=== PATIENT | female | born 1960 | race Caucasian/White ===

== ENCOUNTER 2024-10-05 06:36 | Day surgery (SDC) | payer OTHER ==
[~2024-10-05] VITALS: Ht 167.6 cm; Wt 79.1 kg
[~2024-10-05 06:36] MED LIST: SODIUM CHLORIDE 0.9% 1,000 ML ONE
[2024-10-05] MEDS ORDERED: CHOL10002 PO (07:32)
[2024-10-05] MEDS ORDERED: VALS1TAB81 PO (07:32)
[2024-10-05] MEDS ORDERED: FAMO20 PO (07:32)
[2024-10-05] MEDS ORDERED: METF-1211 PO (07:32)
[2024-10-05] MEDS ORDERED: MONT-40 PO (07:32)
[2024-10-05] MEDS ORDERED: CARV25TA32 PO (07:32)
[2024-10-05] MEDS ORDERED: ATOR40TA71 PO (07:32)
[2024-10-05] MEDS ORDERED: MIDAZOLAM HCL 2 MG/2 ML VIAL ONE (07:45)
[2024-10-05] MEDS ORDERED: FentaNYL CITRATE PF 100 MCG/2 ML VIAL ONE (07:45)
[2024-10-05] MEDS: SODIUM CHLORIDE 0.9% 1,000 ML IV ONE (07:57)
[2024-10-05] MEDS ORDERED: SODIUM CHLORIDE 0.9% 1,000 ML IV ONE (08:00)
[2024-10-05 08:06] LABS: GLUCOMETER DEV NAME(LOC) SDS.; GLUCOSE,POINT OF CARE 107 MG/DL (70-110)
[2024-10-05 09:22] VITALS: PULSE 64; RESP 18; O2SAT 100
[2024-10-05] MEDS ORDERED: LIDOCAINE 2% 11 ML JELLY ONE (12:00)
[2024-10-05] MEDS ORDERED: ALBUTEROL SULFATE 2.5 MG/0.5 ML NEB SOLUTION NEB ONE (12:00)
[2024-10-05] MEDS ORDERED: LIDOCAINE 4% 50 ML SOLUTION ONE (12:00)
[2024-10-05] MEDS ORDERED: BENZOCAINE 20% 50 MCG/SPRAY 57 GM ONE (12:00)
== END 2024-10-05 13:20 | disposition home or self-care (01) ==
LOC: SURGERY 06:36
PROVIDERS: ATTEND Internal Medicine Critical Care Medicine
DX: R05.3 Chronic cough (principal); J38.4 Edema of larynx; B37.0 Candidal stomatitis; Z79.899 Other long term (current) drug therapy; I10 Essential (primary) hypertension; Z98.890 Other specified postprocedural states
CPT/HCPCS: 31623; 82962; 87206; 87101; 87220; 87070; 88108; 31624; 71045; 87015; J3010; J2250; J7030; J7613; Z7610